=== PATIENT | male | born 1985 | race Caucasian/White ===

== ENCOUNTER → 2016-04-09 | Outpatient (CLI) | payer OTHER ==
[~2016-04-09] MED LIST: CETI10TA84 PO; MAGNEVIST IV PRN; NAPR1TAB9 PO
--- NOTE | 2016-04-09 11:07 | DIAGNOSTIC IMAGING REPORT ---
FLUOROSCOPICALLY GUIDED LEFT HIP ARTHROGRAPHIC INJECTION PRE-MRI CLINICAL HISTORY: LEFT HIP PAIN COMPARISON STUDY: None FLUOROSCOPY TIME: 39 seconds. 2 fluoroscopic spot images were acquired.. FINDINGS: A timeout was performed. The risks of the procedure were explained the patient informed consent was obtained. The skin was anesthetized 1% lidocaine. Under fluoroscopic guidance, a 22-gauge spinal needle was introduced the joint capsule the left hip. A mixture of water-soluble contrast and gadolinium was instilled. A fluoroscopic spot image documents intra-articular location of the contrast. The patient was sent to the MRI suite for further imaging. IMPRESSION: Successful fluoroscopically guided left hip arthrographic injection pre-MRI. Electronically signed by: Doyle Levy M.D. 04/09/2016 11:06 AM Dictated Date/Time: 04/09/2016 11:04 AM
--- NOTE | 2016-04-09 11:21 | DIAGNOSTIC IMAGING REPORT ---
MRI ARTHROGRAM OF THE LEFT HIP CLINICAL HISTORY: Left hip pain. Femoroacetabular impingement of left hip. COMPARISON STUDY: No previous studies for comparison. TECHNIQUE: Following a fluoroscopically guided left hip arthrogram and utilizing a 1.5 Daxa magnet, multiplanar, multiecho imaging of the left hip was performed without intravenous contrast. FINDINGS: Alignment of the left hip is in prominent. Distention of the joint space by dilute gadolinium is excellent. There is linear signal within the anterior superior labrum. This contains contrast and suggest a labral tear. Apparent detachment of the inferior labrum is likely within normal limits although would be difficult to exclude on this examination. There is abnormal contour of the femoral head/neck junction. There is minimal cartilage space narrowing. There is no high-grade chondrosis. There is no evidence for avascular necrosis. No mass or fluid collection shown adjacent to the left hip. IMPRESSION: 1. Linear signal abnormality within the anterior superior labrum suggestive of a labral tear. 2. Apparent detachment of the inferior labrum is likely within normal limits but would be difficult to exclude on this exam. 3. Abnormal contour of the femoral head/neck junction which could predispose to femoroacetabular impingement. Electronically signed by: Carlos Melendrez M.D. 04/09/2016 11:20 AM Dictated Date/Time: 04/09/2016 11:09 AM
== END | disposition home or self-care (01) ==
LOC: C.MRIBC 09:33
PROVIDERS: ATTEND Family Medicine Sports Medicine
DX: M25.852 Other specified joint disorders, left hip (principal); M25.552 Pain in left hip

== ENCOUNTER → 2016-05-10 | Outpatient (CLI) | payer OTHER ==
[~2016-05-10] MED LIST changes: -MAGNEVIST IV PRN
== END | disposition home or self-care (01) ==
LOC: C.RDSM 13:19
PROVIDERS: ATTEND Physical Medicine & Rehabilitation Sports Medicine
DX: M25.852 Other specified joint disorders, left hip (principal); M25.552 Pain in left hip

== ENCOUNTER → 2016-08-03 | Day surgery (SDC) | payer OTHER ==
[2016-07-12 10:39] VITALS: Ht 172.7 cm; Wt 68.2 kg
[~2016-08-03] VITALS: Ht 172.7 cm; Wt 68.2 kg
[~2016-08-03] MED LIST changes: +ATROPINE SULFATE 0.1 MG/ML 5ML SYR IV PRN; +CEFAZOLIN 2000 MG/60 ML D5W IV SCH; +DEXAMETHASONE SOD INJ 4 MG/ML VIAL ONE; +EpHEDrine SULFATE INJ 50 MG/ML AMP IV PRN; +EpHEDrine SULFATE INJ 50 MG/ML AMP ONE; +EpINEphrine HCL INJ 1 MG/ML 5ML SYRINGE ONE; +FENTANYL CITRATE INJ 50 MCG/1 ML 2 ML VIAL ONE; +FLUMAZENIL 0.1 MG/1 ML 10 ML VIAL IV PRN; +GLYCOPYRROLATE INJ 0.2 MG/ML VIAL ONE; +HYDROmorphone INJ 1 MG/ML SYR ONE; +KETOROLAC TROMETHAMINE 30 MG/ML VIAL IV. PRN; +LABETALOL HCL IV 5 MG/ML 20ML IV PRN; +LACTATED RINGER'S 1000ML 1,000 ML IV SCH; +LEVOFLOXACIN 500 MG TAB PO SCH; +LIDOCAINE HCL 2% 2 ML VIAL (20MG/ML) ONE; +MIDAZOLAM HCL 1 MG/ML 2ML VIAL ONE; +NALOXONE HCL 0.4 MG/1 ML VIAL/CARP IV PRN; +NEOSTIGMINE METHYLSULFATE 5 MG/5 ML SYR ONE; +ONDANSETRON INJ 2 MG/ML 2 ML VIAL IV PRN; +ONDANSETRON INJ 2 MG/ML 2 ML VIAL ONE; +OXYCODONE/ACETAMINOPHEN 5-325 TAB PO PRN; +PROMETHAZINE HCL INJ 12.5 MG in SODIUM CHLORIDE 0.9% 50ML 50 ML IV PRN; +PROMETHAZINE HCL INJ 25 MG/ML 1 ML VIAL ONE; +PROPOFOL IV EMULSION 10 MG/ML 20 ML VIAL IV ONE; +ROCURONIUM BROMIDE 10 MG/ML 5 ML VIAL ONE; +SODIUM CHLORIDE 0.9% 1000ML 1,000 ML IV SCH; +SODIUM CHLORIDE 0.9% INJ 10 ML VIAL ONE
--- NOTE | 2016-08-03 11:18 | History & Physical Bridge Note ---
H&P Re-Evaluation Bridge Note: I have examined the patient, reviewed the History & Physical and in the interval since the performance of the History & Physical I have noted the following changes of clinical significance: No changes noted
--- NOTE | 2016-08-03 11:20 | Discharge Instructions ---
Discharge Instructions Date of Service Aug 03, 2016. Visit Reason for Visit: Left Hip Labral Tear With Cam Impingement Discharge Discharge Diagnosis / Problem: same Discharge Goals Goal(s): Decrease discomfort, Improve function Medications Stopped Medications Name(s): na Restart Stopped Medication(s): use all scripts as label indicate Activity Recommendations Activity Limitations: as noted below Lifting Limitations: until after follow-up appointment Exercise/Sports Limitations: until after follow-up appointment May Resume Sexual Activity: after follow-up appointment Shower/Bathe: keep incision dry Driving or Machine Use: Weightbearing Status: Left non-weightbearing Anesthesia . Post Anesthesia Instructions: If you have had General Anesthesia or IV Sedation: * Do not drive today. * Resume driving when surgeon permits. * Do not make important decisions or sign legal documents today. * Call surgeon for: 1. Temperature elevations greater than 101 degrees F. 2. Uncontrollable pain. 3. Excessive bleeding. 4. Persistent nausea and vomiting. 5. Medication intolerance (nausea, vomiting or rash). * For nausea and vomiting use only clear liquids such as: tea, soda, bouillon until nausea subsides, then gradually increase diet as tolerated. * If you have any concerns or questions, call your surgeon's office. If physician is unavailable and it is an emergency, call 911 or go to the nearest emergency room. . Diet Recommendations Recommended Home Diet: resume previous diet Procedures Procedures Performed: see op note Pending Studies Studies pending at discharge: no List of pending studies: none Medical Emergencies . Who to Call and When: Medical Emergencies: If at any time you feel your situation is an emergency, please call 911 immediately. . Non-Emergent Contact Non-Emergency issues call your: Specialist Call Non-Emergent contact if: temperature is above 101.5 . . "Provider Documentation" section prepared by Brian Aldrich. .
--- NOTE | 2016-08-03 13:31 | [facility] Post Operative Brief Note ---
Immediate Operative Summary Operative Date Aug 03, 2016. Pre-Operative Diagnosis Left Hip Labral Tear with CAM Impingement Post-Operative Diagnosis same Procedure(s) Performed Left Hip Arthroscopy, Labral Debridement, Chondroplasty Acetabulum, CAM Resection Surgeon Dr. Macy Aldrich [employer] Surgeon(s) Dr. Mariangel Oscar, Dwight Bautista PA-C Estimated Blood Loss trace Findings see op note Fluids (cc crystalloids) 1200cc Specimens none Drains none Anesthesia GET Complication(s) None Disposition Recovery Room / PACU
--- NOTE | 2016-08-03 13:36 | [facility] Operative Report ---
Operative Report Operative Date Aug 03, 2016. Pre-Operative Diagnosis Left Hip Labral Tear with CAM Impingement Post-Operative Diagnosis same Procedure(s) Performed Left Hip Arthroscopy, Labral Debridement, Chondroplasty Acetabulum, CAM Resection Surgeon Dr. Macy Aldrich [employer] Surgeon(s) Dr. Mariangel Oscar, Dwight Bautista, NICK Estimated Blood Loss trace Findings cam lesion/degenerated labral tear with acetabular chondral lesion/ Fluids (cc crystalloids) 1200cc Specimens none Drains none Anesthesia GET Complication(s) None Disposition Recovery Room / PACU Implants none Indications chronic pain/PE/xray and MRI findings Description of Procedure flouroscopic control of ascopic resection of degenerated labral tear and chondral delamination of acetabulum superior and lateral location. CAM resection of femoral neck under flouroscopic control I attest to the content of the Intraoperative Record and any orders documented therein. Any exceptions are noted below.
[2016-08-03] MEDS: HYDROmorphone INJ 1 MG/ML SYR IV PRN ×4 (14:07→14:34)
[2016-08-03 15:19] VITALS: TEMP 38.1
--- NOTE | 2016-08-03 15:44 | Anesthesia Progress Nt - [facility] ---
Anesthesia Post Op Note Date & Time Aug 03, 2016 at 15:43 Vital Signs Pain Intensity: 0 Vital Signs Past 12 Hours Date Time Temp Pulse Resp B/P (MAP) Pulse Ox O2 Delivery O2 Flow Rate FiO2 08/03/16 15:19 38.1 95 16 155/80 (105) 97 Room Air 08/03/16 14:41 37.4 96 16 137/82 100 Room Air 08/03/16 14:41 137/82 08/03/16 14:39 97 15 99 08/03/16 14:39 95 15 08/03/16 14:36 139/76 08/03/16 14:34 103 20 100 08/03/16 14:34 101 20 08/03/16 14:31 140/74 08/03/16 14:29 95 19 08/03/16 14:29 92 19 100 08/03/16 14:26 135/80 08/03/16 14:24 84 11 100 08/03/16 14:24 84 11 08/03/16 14:21 143/78 08/03/16 14:19 89 12 08/03/16 14:19 86 12 100 08/03/16 14:16 135/80 08/03/16 14:14 100 17 08/03/16 14:14 100 17 100 08/03/16 14:11 143/77 08/03/16 14:09 111 23 100 08/03/16 14:09 110 23 08/03/16 14:06 136/78 08/03/16 14:04 101 10 08/03/16 14:04 100 10 100 08/03/16 14:01 147/79 08/03/16 13:59 108 19 08/03/16 13:59 109 19 100 08/03/16 13:57 37.2 108 16 139/75 100 Diffusion Mask 6 08/03/16 13:56 139/75 08/03/16 13:55 123/74 08/03/16 13:54 125 08/03/16 13:54 125 98 08/03/16 09:26 36.8 71 20 143/102 (116) 100 Room Air Notes Mental Status: alert / awake / arousable, participated in evaluation Pt Amnestic to Procedure: Yes Nausea / Vomiting: adequately controlled Pain: adequately controlled Airway Patency, RR, SpO2: stable & adequate BP & HR: stable & adequate Hydration State: stable & adequate Anesthetic Complications: no major complications apparent
[2016-08-03 16:25] VITALS: BP 148/83; PULSE 88; O2SAT 96
--- NOTE | 2016-08-13 09:21 | EDITING REQUIRED CODING QUERY ---
CODING QUERY To promote full compliance with coding requirements relating to patient care, provider participation is requested in all cases of logistics clerk uncertainty. Please assist us with the question(s) below: Coding Question(s): The operative report on file does not contain the details of the procedure done that is needed to code. Could you please dictate the details of this procedure below, or add and addendum to the report that already exists when available? Physician's Response(s): Thank you Elizabeth Vásquez Principal Diagnosis: "_that condition established after study, to be chiefly responsible for occasioning the admission of the patient to the hospital for care." Co-Existing Principal Diagnosis: "_when two or more diagnoses equally meet the criteria for principal diagnosis as determined by the circumstances of admission, diagnostic work up, and/or therapy provided, and the Alphabetic Index, Tabular List, or another coding guideline does not provide sequencing direction, any one of the diagnoses may be sequenced first." "When the physician has documented what appears to be a current diagnosis in the body of the record, but has not included the diagnosis in the final diagnostic statement, the physician should be asked whether the diagnosis should be added." (Source [facility] 2 QTR90. p3-4)
== END | disposition home or self-care (01) ==
LOC: X.SURG 09:16
PROVIDERS: ATTEND Physical Medicine & Rehabilitation Sports Medicine
DX: M25.852 Other specified joint disorders, left hip (principal); Z91.013 Allergy to seafood; Z98.890 Other specified postprocedural states; Z68.23 Body mass index [BMI] 23.0-23.9, adult

== ENCOUNTER → 2016-09-13 | Outpatient (CLI) | payer OTHER ==
[~2016-09-13] MED LIST changes: -ATROPINE SULFATE 0.1 MG/ML 5ML SYR IV PRN; -CEFAZOLIN 2000 MG/60 ML D5W IV SCH; -DEXAMETHASONE SOD INJ 4 MG/ML VIAL ONE; -EpHEDrine SULFATE INJ 50 MG/ML AMP IV PRN; -EpHEDrine SULFATE INJ 50 MG/ML AMP ONE; -EpINEphrine HCL INJ 1 MG/ML 5ML SYRINGE ONE; -FENTANYL CITRATE INJ 50 MCG/1 ML 2 ML VIAL ONE; -FLUMAZENIL 0.1 MG/1 ML 10 ML VIAL IV PRN; -GLYCOPYRROLATE INJ 0.2 MG/ML VIAL ONE; -HYDROmorphone INJ 1 MG/ML SYR ONE; -KETOROLAC TROMETHAMINE 30 MG/ML VIAL IV. PRN; -LABETALOL HCL IV 5 MG/ML 20ML IV PRN; -LACTATED RINGER'S 1000ML 1,000 ML IV SCH; -LEVOFLOXACIN 500 MG TAB PO SCH; -LIDOCAINE HCL 2% 2 ML VIAL (20MG/ML) ONE; -MIDAZOLAM HCL 1 MG/ML 2ML VIAL ONE; -NALOXONE HCL 0.4 MG/1 ML VIAL/CARP IV PRN; -NAPR1TAB9 PO; -NEOSTIGMINE METHYLSULFATE 5 MG/5 ML SYR ONE; -ONDANSETRON INJ 2 MG/ML 2 ML VIAL IV PRN; -ONDANSETRON INJ 2 MG/ML 2 ML VIAL ONE; -OXYCODONE/ACETAMINOPHEN 5-325 TAB PO PRN; -PROMETHAZINE HCL INJ 12.5 MG in SODIUM CHLORIDE 0.9% 50ML 50 ML IV PRN; -PROMETHAZINE HCL INJ 25 MG/ML 1 ML VIAL ONE; -PROPOFOL IV EMULSION 10 MG/ML 20 ML VIAL IV ONE; -ROCURONIUM BROMIDE 10 MG/ML 5 ML VIAL ONE; -SODIUM CHLORIDE 0.9% 1000ML 1,000 ML IV SCH; -SODIUM CHLORIDE 0.9% INJ 10 ML VIAL ONE
== END | disposition home or self-care (01) ==
LOC: C.RDSM 13:34
PROVIDERS: ATTEND Physical Medicine & Rehabilitation Sports Medicine
DX: M25.852 Other specified joint disorders, left hip (principal)

== ENCOUNTER → 2016-10-18 | Outpatient (CLI) | payer BC, OTHER | END | disposition home or self-care (01) | LOC: C.RDSM 09:45 | PROVIDERS: ATTEND Physical Medicine & Rehabilitation Sports Medicine | DX: M25.852 Other specified joint disorders, left hip (principal) ==

== ENCOUNTER → 2017-05-09 | Outpatient (CLI) | payer BC, OTHER ==
--- NOTE | 2017-05-09 08:06 | DIAGNOSTIC IMAGING REPORT ---
L PELVIS UNILATERAL HIP 1 VIEW CLINICAL HISTORY: 32 years-old Male presenting with LEFT HIP PAIN. TECHNIQUE: Single frontal view of the pelvis was obtained as well as frog-leg lateral view of the left hip. COMPARISON: 10/18/2016. FINDINGS: Heterotopic ossification noted along the superior aspect of the left hip joint, which does not bridge to the acetabulum or femur. This has been slowly ossifying since 05/10/2016. Bilateral hip joints are congruent. Sacroiliac joints and pubic symphysis congruent. Bony pelvis intact. No advanced degenerative changes of the hips. No malalignment of the left hip. Left femoral neck intact. 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 Otherwise normal radiographs. Electronically signed by: Mitchell Saldana M.D. 05/09/2017 8:05 AM Dictated Date/Time: 05/09/2017 8:03 AM
== END | disposition home or self-care (01) ==
LOC: C.RDSM 07:57
PROVIDERS: ATTEND Physician Assistant
DX: M25.552 Pain in left hip (principal)

== ENCOUNTER → 2017-05-12 | Outpatient (CLI) | payer OTHER ==
--- NOTE | 2017-05-12 15:53 | DIAGNOSTIC IMAGING REPORT ---
LUMBAR SPINE W/O CONTRAST CLINICAL HISTORY: 32 years-old Male presenting with LEFT HIP PAIN, SACROILIAC JOINT PAIN LEFT, no history of cancer, no prior surgery, persistent left hip pain radiating into the left leg and foot, tingling on the top of the left foot, history of failed left hip surgery. TECHNIQUE: Multisequence, multiplanar MR imaging of the lumbar spine was performed without the use of intravenous contrast. IV contrast: None. COMPARISON: None. FINDINGS: Localizer images: Unremarkable. Normal lumbar lordosis. Vertebral bodies maintain normal height, alignment, and bone marrow signal intensity. Disc desiccation and mild height loss evident at L5-S1. No significant disc bulge at this level. No evidence of neural foraminal or spinal canal narrowing throughout the lumbar spine. Spinal cord ends in good position at the inferior endplate of L1. Cauda equina normal morphology. Paraspinal musculature normal. Incidental note made of a T2 hyperintense, T1 hypointense, simple appearing possibly cystic lesion in the cavoatrial region with minimal surrounding mass effect. This measures 2.9 x 1.5 x 1.1 cm. Surrounding edema. IMPRESSION: 1. No evidence of neural foraminal or spinal canal narrowing. 2. Mild degenerative change of the L5-S1 intervertebral disc. 3. Incidental note made of a cystic appearing lesion in the cavoatrial region of the retroperitoneum. This is indeterminate but may represent a lymphangioma. This is felt to be unrelated to the patient's symptomatology and is of uncertain clinical significance. Electronically signed by: Mitchell Saldana M.D. 05/12/2017 3:52 PM Dictated Date/Time: 05/12/2017 3:47 PM
== END | disposition home or self-care (01) ==
LOC: C.MRIBC 14:59
PROVIDERS: ATTEND Physician Assistant
DX: M53.3 Sacrococcygeal disorders, not elsewhere classified (principal); M25.552 Pain in left hip